=== PATIENT | male | born 1995 | race Caucasian/White ===

== ENCOUNTER 2022-11-11 15:16 | Emergency (ER) | payer OTHER ==
[~2022-11-11] VITALS: Ht 170.2 cm; Wt 84.6 kg
[2022-11-11 17:14] VITALS: BP 133/78; PULSE 86; RESP 18; TEMP 98.3; O2SAT 98
== END 2022-11-11 17:36 | disposition home or self-care (01) ==
LOC: ER 15:16
DX: S61.215A Laceration without foreign body of left ring finger without damage to nail, initial encounter (principal); W27.0XXA Contact with workbench tool, initial encounter; Y93.89 Activity, other specified; Y92.89 Other specified places as the place of occurrence of the external cause; Y99.8 Other external cause status
CPT/HCPCS: 12001; 73140; 99283; J2001